=== PATIENT | female | born 1975 | race Two or more races ===

== ENCOUNTER 2017-05-24 17:04 | Emergency (ER) | payer BC ==
[2017-05-24 19:20] VITALS: BP 140/95
== END 2017-05-24 19:20 | disposition home or self-care (01) ==
LOC: ED 17:04
DX: L02.415 Cutaneous abscess of right lower limb (principal); I10 Essential (primary) hypertension
CPT/HCPCS: J2001

== ENCOUNTER 2017-05-26 08:12 | Emergency (ER) | payer BC, OTHER ==
[~2017-05-26] VITALS: Ht 170.2 cm; Wt 110.2 kg
[2017-05-26 08:18] VITALS: BP 125/84
== END 2017-05-26 08:35 | disposition home or self-care (01) ==
LOC: ED 08:12
DX: Z48.01 Encounter for change or removal of surgical wound dressing (principal)

== ENCOUNTER 2017-08-27 22:28 | Emergency (ER) | payer BC, OTHER ==
[~2017-08-27] VITALS: Ht 170.2 cm; Wt 111.1 kg
[2017-08-27 23:29] VITALS: Ht 170.2 cm; Wt 111.1 kg
[2017-08-28 01:17] VITALS: BP 150/80
== END 2017-08-28 01:17 | disposition left against medical advice (07) ==
LOC: ED 22:28
DX: Z53.21 Procedure and treatment not carried out due to patient leaving prior to being seen by health care provider (principal)